=== PATIENT | male | born 1950 | race Caucasian/White ===

== ENCOUNTER → 2017-03-23 | Day surgery (SDC) | payer OTHER ==
[~2017-03-23] VITALS: Ht 175.3 cm; Wt 128.5 kg
[~2017-03-23] MED LIST: ASPI81TA11 PO; BUPIVACAINE HCL PF 0.5% 30 ML VIAL ONE; CEPH-460 PO; CHLORHEXIDINE GLUCONATE 2 % 1 PACK (2 CLOTHS) TOPICAL PRN; FAMOTIDINE 20 MG/2 ML VIAL ONE; IBUP800T23 PO; INSULIN HUMAN REGULAR 1,000 UNITS/10 ML VIAL SQ PRN; LACTATED RINGER'S 1000 ML IV PRN; LIDOCAINE HCL 2% 50 ML VIAL ONE; METO100T9 PO; METOPROLOL TARTRATE 25 MG TAB PO PRN; MIDAZOLAM HCL 2 MG/2 ML VIAL ONE; MOBI15TA PO; MOBI7.5T PO; NEOMYCIN/POLYMYXIN 1 ML G.U. IRRIGANT ONE; NEXI40CA PO; NORC5TAB PO; PROPOFOL 200 MG/20 ML AMP IV ONE; SODIUM CHLORID 0.9% 500 ML IV PRN; SODIUM CHLORIDE 0.9% INJ 100 ML ONE; TRAD5TAB PO; ceFAZolin 1,000 MG/NS 100 ML IV SCH; ceFAZolin INJ 1,000 MG VIAL ONE
[2017-03-23 09:25] VITALS: BP 132/77; PULSE 85; RESP 16; TEMP 98.3; O2SAT 99
[2017-03-23 09:42] LABS: HEMATOCRIT 46.3 % (39.0-51.0); MEAN CELL VOLUME 91.6 FL (80.0-100.0); MEAN CORPUSCULAR HGB CONC 33.8 % (32.0-36.0); PLATELET COUNT 243 TH/MM3 (150-450); RED BLOOD COUNT 5.05 MIL/MM3 (4.50-5.90); RED CELL DISTRIBUTION WIDTH 12.7 % (11.6-17.2); REVIEW FLAG FINAL; WHITE BLOOD COUNT 11.5 TH/MM3 (4.0-11.0)
[2017-03-23 10:50] VITALS: TEMP 97.8
[2017-03-23 11:32] VITALS: BP 129/86; PULSE 79; RESP 16; O2SAT 99
--- NOTE | 2017-03-24 13:30 | MP ---
cc: RAPHAEL WISEMAN III, M.D. DATE OF SURGERY: 03/23/2017. PREOPERATIVE DIAGNOSIS: Left middle finger mass. OPERATIVE PROCEDURE PERFORMED: Left middle finger mass excisional biopsy. SURGEON: Raphael Wiseman III, MD. DESCRIPTION OF THE PROCEDURE IN DETAIL: The patient was brought to the operating room and placed supine on the operating table. After the correct site and side of surgery were verified by members of each team in the room multiple times including the patient and myself and after adequate preoperative markings and preoperative written consent were verified by everyone and after adequate preoperative time-out was performed to everyone's satisfaction and after adequate general anesthesia and after IV sedation had been achieved, the left upper extremity was prepped and draped in the traditional sterile surgical fashion. A 50/50 mixture of 2% plain lidocaine and 0.5% plain Marcaine was infiltrated in the skin and subcutaneous tissue on the dorsal aspect of the middle finger. The limb was exsanguinated with a gentle Jose wrap. A highly placed well-padded axillary tourniquet was inflated to 200 mmHg for a total of 10 minutes. A transversely oriented incision within the skin crease was made and carried down through skin and subcutaneous tissue. Blunt dissection was performed. A firm, round nonadherent masses identified and excised in its entirety and passed off the field as a specimen. The extensor tendon was intact. There were no other anatomic abnormalities identified. Thorough irrigation with saline was performed. The skin edges were reapproximated using running 4-0 nylon suture. The hand and arm were thoroughly cleansed and dried. Betadine and Adaptic dressings were applied. A bulky soft dressing was applied. The axillary tourniquet was released. The hand and all fingers including the left middle finger became immediately soft, pink, warm and brisk capillary refill of less than 2 seconds. The patient was awakened from anesthesia and transported to the post-anesthesia care unit awake and in stable condition at the end of the case. Sponge, needle and instrument counts were correct at the end of the case as reported by the nurses in the room. MD ART Pardo III/GOMEZ /11:07 AM /1:30 PM
== END | disposition home or self-care (01) ==
LOC: PHSDC 08:22
PROVIDERS: ATTEND Orthopaedic Surgery Hand Surgery
DX: R22.32 Localized swelling, mass and lump, left upper limb (principal); I10 Essential (primary) hypertension; E78.5 Hyperlipidemia, unspecified; E11.9 Type 2 diabetes mellitus without complications; Z98.1 Arthrodesis status
CPT/HCPCS: 00400; 26115; 36415; 85027; 88304; J0690; J2250; 88305; J3010